=== PATIENT | female | born 1975 ===

== ENCOUNTER 2016-06-15 11:16 | Day surgery (SDC) | payer BC ==
[2016-06-15 11:25] VITALS: BMI 19.2
[2016-06-15] MEDS ORDERED: Bupivacaine 0.5% Inj(30mL) ONE (12:12)
[2016-06-15 12:15] LABS: MEAN CELL VOLUME 82.1 fl (81.0-99.0); MEAN CORPUSCULAR HEMOGLOBIN 27.3 pg (27.0-31.0); MEAN CORPUSCULAR HGB CONC 33.2 g/dL (33.0-37.0); RED CELL DISTRIBUTION WIDTH 12.6 % (11.5-14.5); WHITE BLOOD COUNT 5.6 K/uL (4.8-10.8)
[2016-06-15] MEDS ORDERED: Propofol 10 mg/ml Inj (20 ML) ONE (12:23)
[2016-06-15] MEDS ORDERED: Rocuronium 10 mg/ml (5 ml) ONE (12:24)
[2016-06-15] MEDS ORDERED: Midazolam 2 MG/2 ML VIAL ONE (12:24)
[2016-06-15] MEDS ORDERED: Lidocaine 4% (Laryng-O-Jet) Kit MM ONE (12:24)
[2016-06-15] MEDS ORDERED: Succinylcholine 200 mg/10 ml Inj IV ONE (12:24)
[2016-06-15] MEDS ORDERED: ePHEDrine 50 mg/ml Inj ONE (12:28)
[2016-06-15] MEDS ORDERED: Neostigmine Methylsulfate 3mg/3ml Syringe IV ONE (12:28)
[2016-06-15] MEDS ORDERED: Neostigmine Methylsulfate 2 MG/2 ML ML IV ONE (12:28)
[2016-06-15] MEDS ORDERED: Lactated Ringer's 1,000 ML IV ONE ×3 (12:30→14:40)
[2016-06-15] MEDS ORDERED: Desflurane Inhalation Anesthetic Liq (240 ml) ONE (13:11)
[2016-06-15] MEDS ORDERED: HYDROmorphone 0.5 mg/0.5 ml ISec IVP PRN (14:40)
[2016-06-15] MEDS: HYDROmorphone 0.5 mg/0.5 ml ISec IVP PRN ×6 (14:42→15:35)
[2016-06-15] MEDS ORDERED: HYDROmorphone 0.5 mg/0.5 ml ISec ONE (14:42)
[2016-06-15] MEDS ORDERED: Lactated Ringer's 1,000 ML IV SCH (14:45)
[2016-06-15] MEDS ORDERED: Oxycodone/Acetaminophen 5/325 mg Tab PO PRN (18:38)
--- NOTE | 2016-06-16 07:52 | OP ---
PROCEDURE DATE: 06/15/2016 PREOPERATIVE DIAGNOSES: Dysmenorrhea, dyspareunia, pelvic pain and rule out endometriosis. POSTOPERATIVE DIAGNOSES: Dysmenorrhea, dyspareunia, pelvic pain and rule out endometriosis, endometr iosis stage II/III. SURGEON: Kwame Barajas M.D. OLDER WORKER SPECIALIST: Capo Chavez M.D. PROCEDURE PERFORMED: Cystoscopy with catheterization, stenting of ureters bilaterally and injection of IC green dye, hysteroscopy diagnostic, operative laparoscopy; robotic, da Luis Antonio; excision of endom etriosis, bilateral ureterolysis. Dr. Chavez will dictate separately an excision of perirectal mass suggestive of endometriosis that he performed separately and will dictate separately. ANESTHESIA: General endotracheal. ESTIMATED BLOOD LOSS: Minimal. COMPLICATIONS: None. SPECIMEN: Multiple samples of tissue containing endometriosis sent to pathology. COMPLICATIONS: None. ESTIMATED BLOOD LOSS: Minimal. DESCRIPTION OF PROCEDURE: After adequate anesthesia, the patient was placed in the dorsal lithotomy position. She was prepped and draped, the surgeon was gowned and gloved. Attention was in the vagin al area where a cystoscope was inserted into the bladder and under direct visualization, both ureters were stented with a 5-[place] open-ended stent and 0.5 mL of IC-Green were injected into each ureter. The rest of the bladder appeared to be normal. The instruments were removed. Attention was in the vaginal area where a speculum was placed in the vagina. The anterior lip of the cervix was grasped a nd a hysteroscope was inserted into the uterine cavity. The uterine cavity appeared to be normal in size and shape consistent with the patient being on oral contraceptives. There were some aspects of the endometrium that were suggestive of presence of adenomyosis with darker black dotted areas in mul tiple locations. At this point, the hysteroscope was removed and a uterine manipulator was placed in the uterus and attention was on the abdomen where an incision was made infraumbilically on the skin. The incision was carried down through the fascia. The fascia was nicked and with an open laparosco py technique, the peritoneal cavity was entered and a trocar was inserted. Under direct visualizatio n, a left lower quadrant, left mid quadrant and right upper quadrant trocars were inserted. At this point, the da Luis Antonio robot was brought into the field and docked. 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 More specifically, there was an area r etrocervically on the anterior aspect of the sigmoid on the right perirectal area and the left perire ctal area, right pelvic sidewall, left ovarian fossa, and left pelvic brim overlying the ureter. The procedure was started by Dr. Capo Chavez, from general surgery, who excised the lower perirectal masses. At this point, attention was on the right hand side where the ureter was identified. The pe ritoneum overlying the ureter was identified and an incision was made and the retroperitoneal space w as entered. The ureter was lateralized with a [id number] process utilizing the fluorescence and ar ea of peritoneum that was retracted and hyperemic secondary to the presence of inflammatory-type endo metriosis, was excised. At this point, attention was uterosacrally on the right hand side where kaz tionally an area of endometriosis was excised superficially with great care to preserve the hypogastr ic nerve plexus. Attention was on the lefthand side where in the ovarian fossa again another area of hyperemic red type endometriosis was excised by picking up the peritoneum and entering the retroperi toneal space and dissecting the full area in its entirety. Attention then was towards the pelvic kristy m. The patient has reported having left-sided pelvic pain. The ovary was elevated and the perineum w as picked up right on top of the ureter. The ureter was identified utilizing fluorescence. The retro peritoneal space was entered. The ureter was progressively identified and progressively lateralized and a large swath of peritoneum containing endometriosis was excised all the way from the top of th e pelvic brim all the way down to the bottom of the pelvis in the left sigmoid area with preserving a gain the left nerve hypogastric plexus. At this point, it was checked for hemostasis and appeared to be excellent. A small area of endometriosis in the anterior bladder serosa was also identified and e xcised and sent to pathology. At this point, the pelvis was irrigated and appeared to be perfectly h emostatic. The instruments were removed. The robot was undocked. The fascia was closed with 0 PDS and the skin defect was closed with 4-0 Monocryl. All the instruments were removed from the vagina. There did not appear to be bleeding. At this point, the patient was woken up and taken to recovery room in excellent condition. Kwame Barajas MD cc: [id number] TT: 06/16/2016 07:51:24 tn
[2016-06-17 15:30] VITALS: O2SAT 100
[2016-06-17 15:40] VITALS: RESP 18
[2016-06-17 15:44] VITALS: BP 100/62; PULSE 80; TEMP 98
--- NOTE | 2016-07-06 14:33 | OP ---
PROCEDURE DATE: 06/15/2016 SURGEON: Capo Chavez MD HEALTH CARE ATTORNEY: Dr. Kwame Barajas PROCEDURE PERFORMED: Excision of perirectal endometriosis. PREOPERATIVE DIAGNOSIS: Endometriosis. POSTOPERATIVE DIAGNOSIS: Endometriosis. ANESTHESIA: General. ANESTHESIOLOGIST: Dr. Milan ESTIMATED BLOOD LOSS: Zero mL. SPECIMEN SENT: Perirectal endometriosis. BRIEF HISTORY: This is a 40-year-old woman who had been brought to the operating room by Dr. Kwame Barajas, who had initiated a robotic procedure for endometriosis when he noticed that there was a lesi on in the perirectal space. I was called for intraoperative consultation. DESCRIPTION OF PROCEDURE: Dr. Kwame Barajas had already initiated the robotic procedure. When I was called in to the room, I examined the pathology under videoscopy. At this point, I took control of the robot and using blunt and sharp dissection with the aid of electrocautery, the perirectal lesion was lifted from the rectal wall with meticulous attention to hemostasis. The rectal lesion was circu mferentially dissected and lifted from the rectal wall and once this was completed, it was appropriat jai marked and sent to pathology as a separate specimen. The area was examined and hemostasis was de emed adequate. At this point, the operation was turned over to Dr. Kwame Barajas (separate dictation ). Capo Chavez MD cc: [id number] TT: 07/06/2016 14:32:34 en
== END 2016-06-15 20:15 | disposition home or self-care (01) ==
LOC: H.OPSURG 11:16
PROVIDERS: ATTEND Obstetrics & Gynecology Reproductive Endocrinology
DX: N80.3 Endometriosis of pelvic peritoneum (principal); N80.8 Other endometriosis; N94.6 Dysmenorrhea, unspecified; N94.10 Unspecified dyspareunia
CPT/HCPCS: 36415; 50949; 52332; 58555; 58662; 85027; 86850; 86900; 88305; J0330; J0690; J1170; J2001; J2250; J2704; J2710; J3010; J7030; J7040; J7120; S2900